=== PATIENT | female | born 1980 | race Caucasian/White ===

== ENCOUNTER 2022-10-23 08:49 | Emergency (ER) | payer OTHER, SELFPAY ==
--- NOTE | 2022-10-23 08:50 | ED.URI ---
HPI - URI/Sore Throat General Chief Complaint: Upper Respiratory Infection Stated Complaint: cold flu Time Seen by Provider: 10/23/22 08:50 Source: patient and RN notes reviewed History of Present Illness HPI Narrative: patient is a 42-year-old female who presents to the Urgent Care with complaints of nasal congestion, cough. Patient states that she was ill last week with that cold, got better and 2 weeks ago symptoms returned. Patient has been taking Mucinex. Denies any fever, nausea or vomiting. No other acute complaints. No acute distress noted. Patient aware of the plan care. Some parts of this dictation were generated by voice recognition software and may contain typographical and/or grammatical inaccuracies. Related Data Allergies Allergy/AdvReac Type Severity Reaction Status Date / Time No Known Allergies Allergy Verified 10/23/22 09:05 Review of Systems Review of Systems: CONSTITUTIONAL: Denies fever, chills, or sweats. EYES: Denies visual changes, redness, or discharge. ENT: reports rhinorrhea and nasal congestion CARDIOVASCULAR: Denies chest pain, palpitations, or edema. RESPIRATORY: Reports of cough, chest congestion GASTROINTESTINAL: Denies abdominal pain, nausea, vomiting, or diarrhea. GENITOURINARY: Denies dysuria or hematuria. SKIN: Denies rash or itching. MUSCULOSKELETAL: Denies back pain, joint pain, or myalgia. NEUROLOGIC: Denies headache, numbness, or weakness. All other systems reviewed are negative, except as documented in HPI. PMFSH Comments At the time of my signature, I reviewed and agree with the nursing past medical, surgical, social, and family history. There is no relevant family history pertinent to the patient complaint. Exam Narrative: GENERAL: This is a well-nourished, well-developed patient, in no apparent distress. HEAD: normocephalic, atraumatic. EYES: PERRL. Sclera clear/white. Vision is grossly intact. EARS: External ears normal, auditory canals clear and without drainage, TMs normal without perforation. Hearing grossly intact. NOSE: External nose normal with no obvious nasal discharge, nares without redness, no rhinorrhea. THROAT: Mucous membranes moist, posterior pharynx clear. moderate postnasal drainage NECK: Neck supple CARDIOVASCULAR: Regular rate and rhythm without murmurs, gallops, or rubs. RESPIRATORY: Clear to auscultation. Breath sounds equal bilaterally. No wheezes, rales, or rhonchi. SKIN: warm, intact with no suspicious lesions or rash, good texture and turgor. NEURO: awake, alert, and oriented to person, place and time. There were no obvious focal neurologic abnormalities. EXTREMITIES: No clubbing, cyanosis, or edema. Course Course Level of Care: Express Care Visit Vital Signs Vital signs: Vital Signs Temperature 97.6 F 10/23/22 08:57 Pulse Rate 80 10/23/22 08:57 Respiratory Rate 16 10/23/22 08:57 Blood Pressure 112/66 10/23/22 08:57 Pulse Oximetry 99 10/23/22 08:57 Oxygen Delivery Room Air 10/23/22 08:57 Temperature 97.6 F 10/23/22 08:57 Pulse Rate 80 10/23/22 08:57 Respiratory Rate 16 10/23/22 08:57 Blood Pressure 112/66 10/23/22 08:57 Pulse Oximetry 99 10/23/22 08:57 Oxygen Delivery Room Air 10/23/22 08:57 reviewed MDM - URI/Sore Throat MDM Narrative Medical decision making narrative: advised patient to use the Tessalon Perles as needed for cough. Use a daily antihistamine such as Claritin or Zyrtec. Continue Mucinex as needed. Use a humidifier at night. Increase fluid intake and rest. Follow-up with your PCP within 2-5 days or for worsening symptoms or failure to improve. Differential Diagnosis Differential diagnosis: Likely upper respiratory infection, croup, otitis media, sinusitis, viral infection, bronchitis and influenza Critical Care Time Critical Care Time Critical Care Time: No Discharge Plan Discharge Clinical Impression: Upper respiratory infection Qualifiers: URI type: uns
[2022-10-23 08:57] VITALS: BP 112/66; PULSE 80; RESP 16; TEMP 36.4; O2SAT 99
== END 2022-10-23 09:30 | disposition home or self-care (01) ==
PROVIDERS: Emergency Provider Nurse Practitioner Family
DX: J06.9 Acute upper respiratory infection, unspecified (principal)
CPT/HCPCS: 99213; G0463